=== PATIENT | female | born 1985 | race Caucasian/White ===

== ENCOUNTER → 2017-02-05 | Outpatient (CLI) | payer BC, OTHER ==
[~2017-02-05] MED LIST: COLACE 100100 MG/CAP PO; IMPLANON68 MG; PERCOCET 325 MG1 TA2 PO
== END ==
LOC: COL.RAD 14:18
DX: G43.009 Migraine without aura, not intractable, without status migrainosus (principal); G40.B09 Juvenile myoclonic epilepsy, not intractable, without status epilepticus
CPT/HCPCS: A9585